=== PATIENT | male | born 1985 | race Caucasian/White ===

== ENCOUNTER 2017-03-16 13:23 | Emergency (ER) | payer OTHER ==
[~2017-03-16] VITALS: Ht 175.3 cm; Wt 88.6 kg
[2017-03-16 16:02] VITALS: BP 122/63
== END 2017-03-16 15:56 | disposition home or self-care (01) ==
LOC: ED 13:23
DX: S91.112A Laceration without foreign body of left great toe without damage to nail, initial encounter (principal); Z23 Encounter for immunization; W22.8XXA Striking against or struck by other objects, initial encounter
CPT/HCPCS: 90715; A4550

== ENCOUNTER 2018-11-23 08:00 | Outpatient (RCR) | payer OTHER | END 2018-11-23 08:30 | LOC: OT 08:00 | DX: S67.10XD Crushing injury of unspecified finger(s), subsequent encounter (principal) ==

== ENCOUNTER → 2020-08-27 | Outpatient (CLI) | payer BC, OTHER | LOC: LAB 08:38 | DX: Z01.812 Encounter for preprocedural laboratory examination (principal); Z20.828 Contact with and (suspected) exposure to other viral communicable diseases ==

== ENCOUNTER → 2020-08-30 | Day surgery (SDC) | payer BC, OTHER | LOC: MSO | DX: K21.00 Gastro-esophageal reflux disease with esophagitis, without bleeding (principal); Z87.891 Personal history of nicotine dependence; E78.5 Hyperlipidemia, unspecified | CPT/HCPCS: 00731; J2704; J7120 ==

== ENCOUNTER → 2021-12-05 | Outpatient (CLI) | payer BC | LOC: RAD 11:53 | DX: M50.222 Other cervical disc displacement at C5-C6 level (principal) ==

== ENCOUNTER 2022-01-29 14:14 | Outpatient (RCR) | payer BC | END 2022-02-27 | disposition home or self-care (01) | LOC: PT | DX: M54.2 Cervicalgia (principal); R53.1 Weakness; R25.1 Tremor, unspecified ==

== ENCOUNTER → 2022-06-18 | Outpatient (CLI) | payer BC | LOC: RAD 13:25 | DX: M25.561 Pain in right knee (principal) ==

== ENCOUNTER → 2022-09-02 | Outpatient (CLI) | payer BC | LOC: RAD 08:58 | DX: N50.812 Left testicular pain (principal) ==